=== PATIENT | female | born 1975 | race Caucasian/White ===

== ENCOUNTER 2024-06-27 14:31 | Outpatient (REF) | payer MEDICAID, SELFPAY ==
[2024-06-27 15:26] LABS: TSH 3.63 uIU/mL (0.36-3.74)
== END 2024-06-27 14:32 | disposition home or self-care (01) ==
LOC: NCHCN 14:31
PROVIDERS: Visit Provider Family Medicine
DX: E03.9 Hypothyroidism, unspecified (principal)
CPT/HCPCS: 84443

== ENCOUNTER 2024-11-15 12:02 | Inpatient (IN) | payer OTHER, SELFPAY ==
[2024-11-15 14:12] VITALS: BP 106/66; PULSE 107; RESP 16; TEMP 36.9; O2SAT 86
[2024-11-15 14:38] VITALS: BP 106/66; PULSE 107; RESP 16; TEMP 36.9; O2SAT 86
[2024-11-15] MEDS: nitroGLYcerin 0.4 MG TAB SL ×3 (16:18→23:20)
--- NOTE | 2024-11-15 16:53 | W.PM.HP.N ---
Date of service: 11/15/24 Time of Service: 17:02 Assessment and Plan Assessment and plan (1) End stage COPD: Status: Acute Assessment and plan: Reason why she is on hospice. Pulmonology has assessed her sometimes at GOLD 2, sometimes at GOLD 4. When I have seen her, she looks to be in respiratory distress due to poor gas exchange, even though she does n't present with pulmonary cachexia, or pursed lip breathing. Much of her presentation-obtunded, slow processing, nodding off--could be due to hypercarbia. Both times I spent time with her her oxygen was at 3L/min. She initially improved with her new BiPAP. Seems she has regressed again. Will see how she is here with frequent assessments. (2) Common variable immunodeficiency: Status: Acute Assessment and plan: Gets IGG at [facility] for same. Supposed to car changer to home [place] admin of IGG. Has not been taking her prophylactic antibiotics as Dr Will ordered. At risk for drug resistant infections. No evidence of acute infection now. (3) Hospice care patient: Status: Acute Assessment and plan: Is here on hospice symptom management. Will need daily visis until symptoms controlled. She would prefer to go home to , as long as she is comfortable. (4) Chronic pain: Status: Chronic Assessment and plan: Is on high dose opiods of hydromorphone SC 8 g/hr with 4 mg bolus q 15. Continue same. May use liquid morphine for air hunger in addition. (5) Steroid dependence: Status: Acute Assessment and plan: Will try to wean her down while she is here as she is always anxious, which makes her breathing worse. Will see if she tolerates dropping down to 5 mg. May not be able to. (6) Palliative care patient: Status: Acute Assessment and plan: Has seen Dr Velez for MAID. First request done. Planning on using MAID if her symptoms cannot be better controlled. (7) Hypoxia: Status: Acute Assessment and plan: Chronic problem. Severe. Thought that new Bipap would correct, but this has not helped as much as hoped. May lead to her . She is aware. (8) Respiratory disorder with ventilator dependence: Status: Acute Assessment and plan: Drops quickly off BiPAP. (9) Chest pain: Status: Acute Assessment and plan: May be linked to her hypoxia. Will check troponin x 1. If abnormal, consider nitro drip for comfort. Is using oral nitro frequently now. History of Present Illness History of Present Illness Chief Complaint: end-stage copd with severe hypoxia Narrative: Debra Smith is a 49 yo woman with end-stage copd. Her PCP Dr Kay Will referred Debra to hospice and Debra was admitted to home hospice on 10/24/24. Initially, Debra's Bipap was broken and she was often obtunded due to hypercarbia. We ordered a new machine and this initially helped considerably. However, over the last week, she has become nearly entirely bipap dependent. She does not use a nasal cannula at home--only Bipap or RA. She has had oxygenation readings from 35-70% on RA. Her friend and DPGEORGE Ivy who lives with her now says her lungs really took a turn on Monday, 2 days before this HOSPICE [facility]TOM [facility] admission. I saw her in her home prior to calling the ambulance for transport. When I was with her, sats while she was wearing her bipap ranged from 74-86%. On RA her sats ranged from 35% to 62%. She said she was unable to lift her head and hold it up for more than a few seconds. However, she was able to walk with help from Ganesh from her recliner to her BR, about 20 feet. She did not want to use her commode. She did this on RA only. She dropped down to 45% with a HR of 135 while walking. She was unable to have a long conversation with me due to her respiratory distress and severe fatigue/probable hypercapnea. We did discuss options--for her to stay home and accept lower readings, though Ganesh said this made him very uncomfortable. Debra said she'd been having more chest pains this week--in fact she had called 911 for transport at least once--before she opted against it. She repeatedly has said she wants to stay on hospice. She agreed to go to [facility] today, though in the past she has said she wanted to at home no matter what. She is Ganesh explained that he had turned up her oxygen from 2 to 3 L this am when he found her on the floor with a sat of 35%. I turned her back down to 2L. For most of her time on hospice, she has been getting daily hospice nurse visits. She has had 4 hospice provider visits, too. We are providing as much support and care in her home as possible, yet she is still not comfortable. There are no further home interventions that the hospice team and Debra and her friend Ganesh could think of. OF note, she saw museum informatics specialist Dr Justina Velez in her office on 11/13 (surprised she could get out of her home). This was her first visit for Medical Aid In Dying. Dr Velez found her competent. Please see her PC note. She is now being admitted for symptom management as we cannot get her air hunger and respiratory distress under control while maintaining mental clarity and reasonable oxygenation levels. Review of Systems Constitutional Constitutional: Reports body ache(s), Reports daytime sleepiness, Reports fatigue, Reports frequent falls, Reports headache(s), Reports lethargy, Reports stops breathing during sleep and Reports weakness Eyes Eyes: Reports dry eyes ENT Ears, Nose, Mouth, and Throat: Reports dysphagia, Reports dizziness, Reports dry mouth, Reports headache(s) and Reports hoarseness Cardiovascular Cardiovascular: Reports chest pain, Denies diaphoresis, Reports leg edema, Reports lightheadedness, Reports dyspnea and Reports dyspnea on exertion Respiratory Respiratory: Denies hemoptysis, Reports pain on inspiration, Reports dyspnea, Reports dyspnea on exertion and Reports wheezing Gastrointestinal Gastrointestinal: Reports constipation and Reports dysphagia Musculoskeletal Musculoskeletal: Reports myalgias, Reports muscle cramps, Reports muscle weakness and Reports stiffness Neurologic Neurologic: Reports abnormal speech, Reports confusion, Reports dizziness, Reports frequent falls, Reports headache(s), Reports memory loss and Reports weakness Psychiatric Psychiatric: Reports abnormal sleep pattern, Reports confusion, Reports memory loss, Reports mood swings and Reports panic attacks Endocrine Endocrine: Reports fatigue Allergic/Immunologic Allergic/Immunologic: Reports wheezing PFSH All Active Problems (Updated 11/15/24 @ 17:51 by Lisa Roberts MD) Chest pain (Acute) Respiratory disorder with ventilator dependence (Acute) BiPAP dependent Hypoxia (Acute) Advanced care planning/counseling discussion (Acute) Palliative care patient (Acute) on hospice, seeing PC for MAID only Steroid dependence (Acute) Supplemental oxygen dependent (Acute) Osteonecrosis (Acute) Chronic pain (Chronic) From osteonecrosis and chronic low back pain Hospice care patient (Acute) Common variable immunodeficiency (Acute) End stage COPD (Acute) Medical History COPD, severe Anxiety Hematuria Hidradenitis suppurativa Tracheobronchomalacia Cannabis dependence Near syncope Palpitations Tachycardia Bradycardia Anemia Steroid-induced diabetes Primary immune deficiency disorder Surgical History History of bronchoscopy Hx of shoulder surgery History of partial hysterectomy Hx of cholecystectomy Hx of umbilical hernia repair Hx of skin graft Hx of knee surgery History of hip surgery Hx of section Social History Smoking risk assessment performed?: No Meds Allergies and Home Medications Allergies Allergy/AdvReac Type Severity Reaction Status Date / Time amoxicillin Allergy Hives Verified 11/12/24 13:11 penicillin G benzathine Allergy Hives Verified 11/12/24 13:11 Home Medications ?Medication ?Instructions ?Recorded ?Confirmed ?Type albuterol sulfate 90 mcg/actuation 2 inh inhalation Q6H PRN 09/23/24 11/12/24 History breath activated powder inhaler furosemide 20 mg tablet 20 mg PO DAILY PRN 09/23/24 11/12/24 History hydroxyzine HCl 10 mg tablet 10 mg PO TID PRN 09/23/24 11/12/24 History ipratropium 0.5 mg-albuterol 3 mg 3 ml inhalation QID PRN 09/23/24 11/12/24 History (2.5 mg base)/3 mL nebulization soln levothyroxine 100 mcg capsule 200 mcg PO DAILY 09/23/24 11/12/24 History pantoprazole 40 mg tablet,delayed 40 mg PO DAILY 09/23/24 11/12/24 History release prednisone 20 mg tablet 20 mg PO DAILY 09/23/24 11/12/24 History promethazine 25 mg tablet 25 mg PO BID PRN 09/23/24 11/12/24 History triamcinolone acetonide 0.1 % 1 applic topical DAILY 09/23/24 11/12/24 History topical cream hyoscyamine sulfate 0.125 mg tablet 0.125 - 0.25 mg (1 - 2 x 0.125 mg) 11/04/24 11/12/24 Rx PO Q4H PRN PRN dyspepsia #24 tabs morphine concentrate 100 mg/5 mL 5 - 20 mg (0.25 - 1 mL) PO Q1-4H 11/04/24 11/12/24 Rx (20 mg/mL) oral solution PRN moderate to severe pain or shortness of breath #30 mL prochlorperazine maleate 10 mg 10 mg PO Q8H PRN 11/12/24 11/12/24 History tablet (Compazine) lorazepam 1 mg tablet 1 mg PO QID PRN PRN anxiety #56 11/13/24 Rx tabs nitroglycerin 0.3 mg sublingual 0.3 mg sublingual Q5M PRN chest 11/13/24 Rx tablet pain #10 tabs ondansetron 4 mg disintegrating 4 mg PO Q8H PRN nausea and 11/13/24 Rx tablet vomiting #20 tabs hydromorphone (PF) 10 mg/mL 5 - 10 mg (0.5 - 1 mL) subcut Q1H 11/14/24 Rx injection solution pain #100 mL Exam Narrative Exam Narrative: appears older than stated age, minimallly interactive, NAD, holds head down usually, poor eye contact Const General: not healthy appearing, uncomfortable and disheveled Nutritional Appearance: obese Orientation: awake, oriented to person, oriented to place and oriented to time Limitations: physical limitations HENMT Head: normocephalic and atraumatic Ears: hearing grossly normal bilaterally Eyes Conjunctivae: conjunctivae normal Sclera: sclerae normal Neck Neck: no lymphadenopathy Chest Chest: normal inspection of the chest Resp Effort & Inspection: not able to speak in complete sentences, audible wheezes, no retractions and tachypneic (with exertion) Auscultation: bronchovesicular breath sounds, diminished lung sounds, rhonchi and wheezes Cardio Jugular venous pressure: no JVD Rate: tachycardic GI Palpation: soft Auscultation: normal bowel sounds Skin General skin exam: dry skin Rashes: rashes noted Nails: clubbing Neuro General: patient awake, patient oriented x3 and gait abnormal Cognition: abnormal cognition Speech: abnormal speech Gait: other (unsteady) Extrem General: muscle atrophy and pedal edema Psych Appearance: disheveled Speech and Movement: delayed speech and slowed movement Mood: dysthymic mood Affect: sad, dysphoric affect and blunted Attitude: cooperative and avoids eye contact Thought Process: impoverished Insight: limited Judgment: limited Results Last Vital Signs Temp 98.4 F 11/15/24 14:38 Pulse 107 H 11/15/24 14:38 Resp 16 11/15/24 14:38 BP 106/66 11/15/24 14:38 Pulse Ox 86 L 11/15/24 14:38 Time Spent Time spent with Patient: >75 minutes (both at home and in the hospital. ) Time was spent: obtaining and/or reviewing separately otained hiistory, ordering medications,tests, procedures, referring, communicating with other health care manager, counseling the patient and care coordination
[2024-11-15] MEDS: Scopolamine 1 MG/3 DAYS PATCH TD (17:33)
[2024-11-15 22:51] LABS: Troponin I > 75000 ng/L (<or=51)
[2024-11-16] MEDS: nitroGLYcerin in D5W 50 MG/250 ML BTL IV (00:20)
[2024-11-16] MEDS: MORPHine Oral Concentrate 20 MG/ML PO ×6 (00:47→20:17)
[2024-11-16] MEDS: LORazepam 1 MG TAB PO ×2 (03:22→11:47)
[2024-11-16] MEDS: Pantoprazole 40 MG TABCR PO (08:06)
[2024-11-16] MEDS: predniSONE 20 MG TAB PO (08:06)
--- NOTE | 2024-11-16 11:16 | PGE_ITS ---
Date of Service Date of service: 11/16/24 Time of Service: 11:17 Assessment and Plan Assessment and plan (1) End stage COPD: Status: Acute Assessment and plan: On hospice due to refractory hypoxia and progressive decline. Continues to demonstrate signs of hypercarbia with fluctuating awareness. Slight improvement today with more responsiveness. Will continue BiPAP support and reassess frequently for tolerance and symptom control. (2) Respiratory disorder with ventilator dependence: Status: Acute Assessment and plan: BiPAP-dependent. Drops quickly when off. Monitor BiPAP tolerance closely and coordinate with respiratory therapy. (3) Chest pain: Status: Acute Assessment and plan: Troponin markedly elevated (>75,000). Nitro drip started overnight for symptom relief; currently at 60 mcg/min. Will continue to titrate drip based on chest pain. This likely represents Type II IA in setting of profound hypoxia and respiratory compromise. Comfort care only per patient?s expressed goals. Avoiding further invasive workup or transfer to higher level of care. (4) Muscle cramps: Status: Acute Assessment and plan: Likely secondary to electrolyte imbalance and progressive cachexia. Continue to treat sx with lorazepam and hydromorphone. Comfort focus. (5) Common variable immunodeficiency: Status: Acute Assessment and plan: On IGG infusions via [place]; has not transitioned to home SC dosing. Not currently on prophylactic antibiotics as prescribed. No signs of active infection today. Monitor closely. (6) Hospice care patient: Status: Acute Assessment and plan: Here for symptom management. Remains hospice-appropriate. Will continue daily provider visits until symptoms are better controlled. Reiterated desire to return home if stable enough. (7) Chronic pain: Status: Chronic Assessment and plan: SC hydromorphone changed to IV; currently 14 mg/h and 7 mg q15min bolus PRN. Increase basal by 2 mg hourly if 2 or more boluses/h and increase bolus to 1/2 of basal. Tolerating regimen. Continue low-dose morphine for breakthrough air hunger. (8) Steroid dependence: Status: Acute Assessment and plan: On chronic prednisone 20 mg daily. Considering cautious taper to 5 mg; however, patient?s anxiety and dyspnea may limit this. Reassess tolerance before adjusting. (9) Palliative care patient: Status: Acute Assessment and plan: MAID consultation completed with Dr. Velez; first request made. Patient remains competent and may elect MAID if symptoms cannot be sufficiently controlled. (10) Hypoxia: Status: Acute Assessment and plan: Chronic and severe. Slight improvement in BiPAP responsiveness, but overall oxygenation remains poor. Declines to escalate care beyond current comfort- focused approach. Subjective Subjective Patient reports: pain is less Interval history since last seen: Patient's pain is slightly improved today. She is more alert and responsive than on admission, maintaining brief periods of eye contact. She is tolerating BiPAP for longer durations with fewer desaturations noted during care interactions. No acute distress noted at bedside. Continues to report fatigue, chest discomfort, and intermittent muscle cramps. She remains steadfast in her desire for comfort-focused care only. * Awake, oriented to person/place/time * Poor eye contact but able to respond appropriately when prompted * No acute distress observed; speech remains slowed * On BiPAP continuously, saturations ranging 82?88% at rest * Audible wheezing, diminished breath sounds, mild tachypnea * Pedal edema persists; mild chest wall tenderness to palpation * Mood dysthymic, affect blunted but cooperative with care. Exam Narrative Exam Narrative: Cardiovascular: Tachycardic, regular rhythm. No murmur. Mild chest wall tenderness. Nitroglycerin drip infusing at 60 mcg/min with ongoing chest discomfort but improved since initiation. Neurologic: Cognition improved compared to prior exam. Follows commands, nods appropriately. Speech slowed but appropriate. Extremities: Trace pedal edema. No cyanosis. Clubbing noted. Objective Last Vital Signs Temp 36.9 C 11/15/24 14:38 Pulse 107 H 11/15/24 14:38 Resp 16 11/15/24 14:38 BP 106/66 11/15/24 14:38 Pulse Ox 86 L 11/15/24 14:38 Laboratory Results - last 24 hr 11/15/24 20:00 Troponin I > 68536 H* Time Spent with Patient Time Spent with Patient: >50 minutes Time was spent: preparing to see the patient(eg.review tests), ordering medications,tests, procedures, referring, communicating with other health healthcare facility administrator, indepentently interpreting results and care coordination
[2024-11-16] MEDS: Haloperidol 1 MG TAB PO ×2 (13:08→20:18)
--- NOTE | 2024-11-16 13:09 | PDOC.CMPRO ---
Date of service: 11/16/24 Time of Service: 13:10 Care Management Progress Note Progress Note Text Progress Note Text: Debra was admitted yesterday for hospice respite and symptom management. She lives with her friend Delta, who is also her DPOA. Debra has been on hospice since 10/24/24 due to her advanced COPD. She visited with Dr. Velez at at hospice on 11/11/24 to discuss Medical Aid in Dying. Debra was sitting up in the bed, coughing, when CM met with her. Her respiratory status and color were notably poor. She was very pleasant, however. She was alone in her room at the time, but is well supported by her friend, Ganesh. Debra is a , with 2 children, daughter nearby does not visit often, her son is in [place]. Debra requested a fan, some paper and a pen, some more tissues, and pain medication. RN was notified of the pain med, CM delivered the rest. Discharge Potential Discharge Needs: Other (continuation of hospice care) Anticipated Barriers to Discharge: None Identified Patient/Family Education Needs: Review discharge instructions, discuss Ask Me Three Transportation: Private vehicle Plan: Anticipate that Debra will be discharged home with a continuation of her hospice supports. She will transport home with her friend, Ganesh, in a private vehicle. CM will continue to follow. Social Determinants of Health Screening Will the Patient Participate in the Screening?: Unable to obtain
[2024-11-16] MEDS: LORazepam 20 MG/10 ML VIAL IVP ×3 (13:31→21:27)
[2024-11-16] MEDS: nitroGLYcerin in D5W 50 MG/250 ML BTL 21 MG IV (15:16)
--- NOTE | 2024-11-16 19:33 | NUR.NOTE ---
Nursing Note: Diego George ContactKatie, phone number [phone], , please call to contact Vaughn Smith--Pt's son in the [employer]--if the patient passes.
[2024-11-17] MEDS: nitroGLYcerin in D5W 50 MG/250 ML BTL 22.5 MG IV (00:49)
[2024-11-17] MEDS: MORPHine Oral Concentrate 20 MG/ML PO ×5 (02:28→19:31)
[2024-11-17] MEDS: Haloperidol 1 MG TAB PO ×3 (02:28→19:31)
[2024-11-17] MEDS: LORazepam 20 MG/10 ML VIAL IVP ×5 (02:28→19:31)
[2024-11-17] MEDS: predniSONE 20 MG TAB PO (09:16)
[2024-11-17] MEDS: Pantoprazole 40 MG TABCR PO (09:16)
[2024-11-17] MEDS: HYDROmorphone 2 MG/ML SYR 4 MG IM (09:34)
[2024-11-17] MEDS: nitroGLYcerin in D5W 50 MG/250 ML BTL 95 MG IV (13:09)
--- NOTE | 2024-11-17 15:34 | PGE_ITS ---
Date of Service Date of service: 11/17/24 Time of Service: 15:34 Assessment and Plan Assessment and plan (1) End stage COPD: Status: Acute Assessment and plan: On hospice due to refractory hypoxia and progressive decline. Slight improvement today with more responsiveness. Will continue nasal cannula and reassess frequently for tolerance and symptom control. Place BiPap for comfort prn. Discussed palliative sedation with Dr Roberts. Wants to start on Monday after her son arrives. (2) Respiratory disorder with ventilator dependence: Status: Acute Assessment and plan: Nasal cannula dependent today. BiPap if increased WOB, resp (3) Chest pain: Status: Acute Assessment and plan: Nitro drips continued for symptom relief; currently at 95 mcg/min. Will continue to titrate drip based on chest pain. This likely represents Type II PR in setting of profound hypoxia and respiratory compromise. Comfort care only per patient?s expressed goals. Avoiding further invasive workup or transfer to higher level of care. (4) Muscle cramps: Status: Acute Assessment and plan: Likely secondary to electrolyte imbalance and progressive cachexia. Continue to treat sx with lorazepam and hydromorphone. Comfort focus. (5) Hospice care patient: Status: Acute Assessment and plan: The patient remains hospice-appropriate and is being followed closely for symptom management. Daily provider visits will continue until better symptom control is achieved. * Pain: Patient reports pain as tolerable but continues to experience a considerable amount of discomfort. She is frequently requesting hydromorphone boluses, and the continuous infusion has been titrated accordingly. Current regimen includes: * Hydromorphone drip at 20 mg/hr * 10 mg boluses available every 15 minutes as needed Pain management remains a focus despite reported tolerability. (6) Chronic pain: Status: Chronic Assessment and plan: Continue hydromorphone drip IV; currently 20 mg/h and 10 mg q15min bolus PRN. Increase basal by 2 mg hourly if 2 or more boluses/h and increase bolus to 1/2 of basal. Tolerating regimen. Continue low-dose oral morphine for breakthrough a ir hunger. (7) Steroid dependence: Status: Acute Assessment and plan: On chronic prednisone 20 mg daily. Considering cautious taper to 5 mg; however, patient?s anxiety and dyspnea may limit this. Reassess tolerance before adjusting. (8) Palliative care patient: Status: Acute Assessment and plan: MAID consultation completed with Dr. Velez; first request made. Patient remains competent and may elect MAID if symptoms cannot be sufficiently controlled. Discussed palliative sedation with Dr Roberts - form signed. (9) Hypoxia: Status: Acute Assessment and plan: Chronic and severe. Overall oxygenation remains poor. Declines to escalate care beyond current comfort-focused approach. (10) Common variable immunodeficiency: Status: Acute Assessment and plan: On IGG infusions via [place]; has not transitioned to home SC dosing. Not currently on prophylactic antibiotics as prescribed. No signs of active infection today. Monitor closely. Subjective Subjective Patient reports: pain is less Interval history since last seen: Patient's pain is tolerable, per her report, today. She is alert and responsive, maintaining long periods of eye contact. She is tolerating nasal cannula without increased WOB. She is not in acute distress.. Continues to report fatigue, chest discomfort, and intermittent muscle cramps. She remains steadfast in her desire for comfort-focused care only. She requested to speak with physician regarding palliative sedation - Dr Roberts contacted and came in to see her. * Awake, oriented to person/place/time - boyfriend and friend at bedside. Brother arrived today; son to arrive tomorrow. * Good eye contact, conversant * No acute distress observed; speech remains slowed * On nasal cannula without increased WOB * Audible wheezing, diminished breath sound * Pedal edema persists; mild chest wall tenderness to palpation * Mood dysthymic, affect blunted but cooperative with care. Exam Narrative Exam Narrative: Cardiovascular: Tachycardic, regular rhythm. No murmur. Mild chest wall tenderness. Nitroglycerin drip infusing at 95 mcg/min with ongoing chest discomfort but continues to improve with increase in the drip, she reports as tolerable. She is no acute distress . Neurologic: Cognition, normal, comptete conversations, makes sense, words are not slurred. She did tell me about her day, her brother arrived, when son is arriving, her sister in law is coming. She states she is thrilled with the care she is receiving. Extremities: Trace pedal edema. No cyanosis. Clubbing noted. Objective Last Vital Signs Temp 36.9 C 11/15/24 14:38 Pulse 107 H 11/15/24 14:38 Resp 16 11/15/24 14:38 BP 106/66 11/15/24 14:38 Pulse Ox 86 L 11/15/24 14:38 Time Spent with Patient Time Spent with Patient: 25-34 minutes Time was spent: preparing to see the patient(eg.review tests), ordering medications,tests, procedures, referring, communicating with other health clinical manager home care, counseling the patient and care coordination
[2024-11-17] MEDS: Normal Saline Flush 10 ML SYR ×2 (15:46→17:45)
[2024-11-17] MEDS: Nicotine 4 MG GUM CH (16:07)
--- NOTE | 2024-11-17 18:24 | RESPIRATORY ---
11/17/24 Patient is on comfort care. Patient has home BIPAP in her room from [employer] which she states she has no issues with.
[2024-11-17] MEDS: Ondansetron O.D.T. 4 MG TABEF PO (21:41)
[2024-11-17] MEDS: nitroGLYcerin in D5W 50 MG/250 ML BTL 28.5 MG IV (21:56)
[2024-11-18] MEDS: Ondansetron 4 MG/2 ML VIAL IVP (00:44)
[2024-11-18] MEDS: LORazepam 20 MG/10 ML VIAL IVP ×4 (01:36→23:10)
[2024-11-18] MEDS: Haloperidol 1 MG TAB PO ×5 (01:36→23:10)
[2024-11-18] MEDS: MORPHine Oral Concentrate 20 MG/ML PO ×4 (01:37→23:10)
--- NOTE | 2024-11-18 03:19 | RESPIRATORY ---
RT called for a malfunctioning NIV. the device is a touchscreen model, and the screen was found to be broken and non-functional. The cause is unclear, but it appears it may have been dropped. The patient is very confused, attempting to grab objects, and is unable to provide details about it. Pt. agreed to use hospital BiPAP machine. Setting were adjusted based on the patient's comfort and tolerance. Pt. unable to provide the exact settings of the home device but described it provides assistance with both inhalation and exhalation. Setting adjusted at BiPAP 10/5 and FiO2 32% after pt. mentioned it felt similar pressure that she gets from home machine and FiO2 adjusted to match pt's baseline O2 flow of 3l/min.
[2024-11-18] MEDS: nitroGLYcerin in D5W 50 MG/250 ML BTL 28.5 MG IV ×2 (07:10→15:37)
--- NOTE | 2024-11-18 16:23 | CMPROGNOTE_ITS ---
Date of service: 11/18/24 Time of Service: 16:23 Care Management Progress Note Progress Note Text Progress Note Text: Debra was sitting crossed-legged on the bed, head slumped over on the bedside table when CM met with her today. She was easily roused. When asked how she was feeling, she stated sick. CM asked her about the plan for palliative sedation tomorrow after she sees her son. She stated that she is comfortable with this decision. She has beed sick for a very long time. Debra then placed her head back on the table. CM rubbed her back for a bit, and left her sleeping. Discharge Plan: Debra is [employer]ENT[employer] OFFICE [employer]. She will begin palliative sedation tomorrow, after she has a visit from her son. CM will continue to follow and support Debra and her family as able. Social Determinants of Health Screening Will the Patient Participate in the Screening?: Unable to obtain
[2024-11-18] MEDS: Scopolamine 1 MG/3 DAYS PATCH TD (17:30)
--- NOTE | 2024-11-18 19:35 | PGE_ITS ---
Date of Service Date of service: 11/18/24 Time of Service: 19:35 Assessment and Plan Assessment and plan (1) End stage COPD: Status: Acute Assessment and plan: Patient is on hospice care due to refractory hypoxia and ongoing clinical decline. Today, she maintained responsiveness and was able to sit up at the bedside and chat with friends and family. She is clear, alert and orientd. She will remain on nasal cannula with frequent reassessments for tolerance and symptom management. BiPAP will be used as needed for comfort. Palliative sedation was discussed with Dr. Roberts. The patient wishes to initiate sedation on Monday, following the arrival of her son Monday. (2) Respiratory disorder with ventilator dependence: Status: Acute Assessment and plan: Nasal cannula dependent today. BiPap if increased WOB, resp (3) Chest pain: Status: Acute Assessment and plan: Nitro drips continued for symptom relief; currently at 95 mcg/min. Unchanged in 24h Will continue to titrate drip based on chest pain. This likely represents Type II DC in setting of profound hypoxia and respiratory compromise. Comfort care only per patient?s expressed goals. Avoiding further invasive workup or transfer to higher level of care. (4) Muscle cramps: Status: Acute Assessment and plan: Likely secondary to electrolyte imbalance and progressive cachexia. Continue to treat sx with lorazepam and hydromorphone. Comfort focus. (5) Hospice care patient: Status: Acute Assessment and plan: The patient remains appropriate for hospice care and is being closely monitored for symptom management. Daily provider visits will continue until optimal symptom control is achieved. * Pain: The patient reports her pain as tolerable but continues to experience significant discomfort. She frequently requests hydromorphone boluses, and the continuous infusion has been adjusted accordingly. Current pain management regimen includes: * Hydromorphone infusion at 22 mg/hr * 11 mg boluses available every 15 minutes as needed (10 over the past 24H) Pain control remains a primary focus despite the patient?s report of tolerability. (6) Chronic pain: Status: Chronic Assessment and plan: Continue hydromorphone drip IV; currently 22 mg/h and 10 mg q15min bolus PRN. Increase basal by 2 mg hourly if 2 or more boluses/h and increase bolus to 1/2 of basal. Tolerating regimen. Continue low-dose oral morphine for breakthrough air hunger. (7) Steroid dependence: Status: Acute Assessment and plan: On chronic prednisone 20 mg daily. Considering cautious taper to 5 mg; however, patient?s anxiety and dyspnea may limit this. Reassess tolerance before adjusting. (8) Palliative care patient: Status: Acute Assessment and plan: Despite escalating medication doses, the patient?s pain and breathing remain inadequately controlled. A Medical Assistance in Dying consultation was completed with Dr. Velez, with the first request made. The patient remains competent and may choose [facility] if symptoms cannot be sufficiently managed. Palliative sedation was also discussed with Dr. Roberts, and the consent form has been signed. (9) Hypoxia: Status: Acute Assessment and plan: Chronic and severe. Overall oxygenation remains poor. Declines to escalate care beyond current comfort-focused approach. Subjective Subjective Patient reports: still having pain (however tolerable with current med regime), tolerating liquids well, tolerating a regular diet, voiding w/o difficulty and shortness of breath Interval history since last seen: The patient reports her pain is tolerable today. She is alert, oriented to person, place, and time, and engages in extended periods of eye contact. She remains responsive and conversant. Though fatigued, she is cooperative with care. She continues to experience fatigue, intermittent chest discomfort, and muscle cramps. Mood is dysthymic with a blunted affect, but she interacts appropriately and remains engaged. The patient is on nasal cannula without signs of increased work of breathing. Audible wheezing is present with diminished breath sounds. Mild chest wall tenderness noted on palpation; pedal edema persists. She reaffirms her preference for comfort-focused care only. She requested to speak with a physician regarding palliative sedation; Dr. Roberts was contacted and evaluated her at bedside. Social Update: Boyfriend and a close friend are present at bedside. Her brother arrived yesterday, and her son, she thought would arrive today, is expected tomorrow. Exam Narrative Exam Narrative: Cardiovascular: Tachycardic, regular rhythm. No murmur. Mild chest wall tenderness. Nitroglycerin drip infusing at 95 mcg/min with ongoing chest discomfort but continues to improve with increase in the drip, she reports as tolerable. She is no acute distress . Neurologic: Cognition, normal, comptete conversations, makes sense, words are not slurred. She did tell me about her day, her brother arrived, when son is arriving, her sister in law is coming. She states she is thrilled with the care she is receiving. Extremities: Trace pedal edema. No cyanosis. Clubbing noted. Objective Last Vital Signs Temp 36.9 C 11/15/24 14:38 Pulse 107 H 11/15/24 14:38 Resp 16 11/15/24 14:38 BP 106/66 11/15/24 14:38 Pulse Ox 86 L 11/15/24 14:38 Time Spent with Patient Time Spent with Patient: 25-34 minutes Time was spent: ordering medications,tests, procedures, counseling the patient and care coordination
[2024-11-18] MEDS: Normal Saline Flush 10 ML SYR (23:27)
[2024-11-19] MEDS: nitroGLYcerin in D5W 50 MG/250 ML BTL 28.5 MG IV ×3 (00:02→17:11)
[2024-11-19] MEDS: LORazepam 20 MG/10 ML VIAL IVP ×2 (08:23→21:27)
[2024-11-19] MEDS: MORPHine Oral Concentrate 20 MG/ML PO ×2 (08:23→21:27)
--- NOTE | 2024-11-19 10:40 | PDOC.CMPRO ---
Date of service: 11/19/24 Time of Service: 10:40 Care Management Progress Note Progress Note Text Progress Note Text: CM met with Debra, who was resting in her room, surrounded by friends and family. They stated that she has been talking a little this morning, but not much. They were both tearful and joyful, reminiscing about their close friend. They stated that Debra's son will be visiting this evening, and he and Debra's brother are making final arrangements. CM offered support with options, if needed. CM spoke to Debra's RN, who stated that Debra appears to be having an CO, and is being kept comfortable with nitro and hydromorphone. Her plan, per hospice, is to remain at [facility] for end of life care. CM will continue to follow. Discharge Plan: Debra is on comfort measures, and her plan is to remain at [facility] for end of life care. She will transition to palliative sedation later this evening, after her son is able to visit. CM will continue to follow and support Debra and her family during this difficult time. Social Determinants of Health Screening Will the Patient Participate in the Screening?: Unable to obtain
--- NOTE | 2024-11-19 15:05 | CHAPLAIN ---
I had a short visit with Debra and brought her a prayer shawl. The social work administrator from [facility] arrived to visit Debra, so I left. I will visit again later. According to Care Management, palliative sedation is planned for later this evening after Debra's son visits with her.
--- NOTE | 2024-11-19 18:50 | PGE_ITS ---
Date of Service Date of service: 11/19/24 Time of Service: 18:50 Assessment and Plan Assessment and plan (1) End stage COPD: Status: Acute Assessment and plan: The patient is receiving hospice care due to refractory hypoxia and progressive clinical decline. Today, she remained responsive but spent most of the day sleeping. She was observed hunched over in bed with her head resting on her lap, a position she reports as comfortable. She is alert, clear, and oriented. Oxygen is being delivered via nasal cannula, with frequent reassessments for symptom control and tolerance. BiPAP will be utilized as needed for comfort. Her SpO2 has not been evaluated today. The patient has expressed her wish to initiate palliative sedation on Monday, after her son arrives Monday night. She continues to decline with the current regimen, though she appears comfortable at this time. A return home is not feasible due to her requirement for a nitroglycerin drip and IV hydromorphone, which cannot be converted to subcutaneous administration. A midline is currently in place due to limited IV access. (2) Respiratory disorder with ventilator dependence: Status: Acute Assessment and plan: Nasal cannula dependent today. BiPap if increased WOB, resp (3) Chest pain: Status: Acute Assessment and plan: Nitro drips continued for symptom relief; currently at 95 mcg/min. Unchanged in 24h Will continue to titrate drip based on chest pain. This likely represents Type II NE in setting of profound hypoxia and respiratory compromise. Comfort care only per patient?s expressed goals. Avoiding further invasive workup or transfer to higher level of care. (4) Muscle cramps: Status: Acute Assessment and plan: Likely secondary to electrolyte imbalance and progressive cachexia. Continue to treat sx with lorazepam and hydromorphone. Comfort focus. (5) Hospice care patient: Status: Acute Assessment and plan: The patient remains appropriate for hospice care and is being closely monitored for symptom management. Daily provider visits will continue until optimal symptom control is achieved. * Pain: The patient reports her pain as tolerable but continues to experience significant discomfort. She frequently requests hydromorphone boluses, and the continuous infusion has been adjusted accordingly. Current pain management regimen includes: * Hydromorphone infusion at 24 mg/hr * Boluses available every 15 minutes as needed (Fewer required over past 24H) Pain control remains a primary focus despite the patient?s report of tolerability. (6) Chronic pain: Status: Chronic Assessment and plan: Continue hydromorphone drip IV; currently 24 mg/h and 12 mg q15min bolus PRN. Increase basal by 2 mg hourly if 2 or more boluses/h and increase bolus to 1/2 of basal. Tolerating regimen. Continue low-dose oral morphine for breakthrough air hunger. (7) Steroid dependence: Status: Acute Assessment and plan: On chronic prednisone 20 mg daily. Considering cautious taper to 5 mg; however, patient?s anxiety and dyspnea may limit this. Reassess tolerance before adjusting. (8) Palliative care patient: Status: Acute Assessment and plan: Despite escalating medication doses, the patient?s pain and breathing remain inadequately controlled. A Medical Assistance in Dying consultation was completed with Dr. Velez, with the first request made. The patient remains competent and may choose [facility] if symptoms cannot be sufficiently managed. Palliative sedation was also discussed with Dr. Roberts, and the consent form has been signed, however will be reevaluated on 11/20. (9) Hypoxia: Status: Acute Assessment and plan: Chronic and severe. Overall oxygenation remains poor. Declines to escalate care beyond current comfort-focused approach. Subjective Subjective Patient reports: no new complaints, still having pain, pain is less, voiding w/o difficulty, no bowel movement, shortness of breath and afebrile; denies tolerating liquids well, tolerating a regular diet, diarrhea or nausea Interval history since last seen: Continues to have pain and requiring nitroglycerin drip and hydromorphone drip with increased basal and boluses needed. Morphine and haloperidol also for shortness of breath and anxiety/agitation. Exam Narrative Exam Narrative: Cardiovascular: Tachycardic, regular rhythm. No murmur. Mild chest wall tenderness. Nitroglycerin drip infusing at 95 mcg/min with ongoing chest discomfort but admits to less pain with increase in the drip, she reports as tolerable. She is no acute distress . Neurologic: Cognition, normal, comptete conversations, makes sense, words are not slurred. She did tell me about her day, her brother arrived, when son is arriving, her sister in law is coming. Much more tired today, sleeping more. Unable to tolerate food and is no longer taking oral fluids as she is having difficulty swallowing and drools most of it out of her mouth. Extremities: Trace pedal edema. No cyanosis. Clubbing noted.Cool, pale, no mottling noted. Objective Last Vital Signs Temp 36.9 C 11/15/24 14:38 Pulse 107 H 11/15/24 14:38 Resp 16 11/15/24 14:38 BP 106/66 11/15/24 14:38 Pulse Ox 86 L 11/15/24 14:38 Time Spent with Patient Time Spent with Patient: 35-49 minutes Time was spent: referring, communicating with other health special needs caregiver, counseling the patient and care coordination
[2024-11-19] MEDS: Haloperidol 1 MG TAB PO (21:27)
[2024-11-20] MEDS: nitroGLYcerin in D5W 50 MG/250 ML BTL 28.5 MG IV (02:04)
--- NOTE | 2024-11-20 11:48 | DSE_ITS ---
Date of service: 11/20/24 Time of Service: 11:48 DS: Diagnosis Discharge Diagnosis (1) End stage COPD: Status: Acute (2) Respiratory disorder with ventilator dependence: Status: Acute (3) Chest pain: Status: Acute (4) Muscle cramps: Status: Acute (5) Hospice care patient: Status: Acute (6) Chronic pain: Status: Chronic (7) Steroid dependence: Status: Acute (8) Palliative care patient: Status: Acute (9) Hypoxia: Status: Acute Discharge Plan Disposition Patient Disposition: Home W/Hospice Services Condition: Poor Discharge Details Reason For Visit: Hospice Admit Date/Time: 11/15/24 12:02 Admit Provider: Lisa Roberts Attending Provider: Lisa Roberts Primary Care Provider: Kay Will Hospital Course Hospital Course: Debra Smith, a 49-year-old woman with end-stage COPD and common variable immunodeficiency, was admitted to hospice care on 10/24/24 due to progressive respiratory failure. She has become increasingly dependent on BIPAP therapy, wi th her oxygen saturation fluctuating between 35%-70% on room air and 74%-86% with BIPAP. Despite various interventions, she has been unable to sustain adequate oxygen levels without BIPAP assistance. Over the past week, Debra has experienced worsening chest pain, dyspnea, and fatigue, leading to her hospice admission for symptom management to address her ongoing air hunger and discomfort. Debra has expressed a strong preference to remain in hospice care, declining further aggressive treatments and opting for comfort measures for the remainder of her life. Clinical Course & Treatment: Upon admission, Debra's symptoms included severe dyspnea, fatigue, and significant chest pain. Despite interventions such as increased BIPAP settings and supplemental oxygen, her hypoxia remained severe. Debra was placed on: * Hydromorphone IV drip for pain management. * Nitroglycerin drip to manage chest pain. * Regular morphine for breakthrough pain and air hunger. * Haldol for sedation and to reduce anxiety. * Lorazepam as needed for anxiety and agitation. These interventions were successful in improving Debra?s comfort. By the time of discharge, she was stable, alert, and cooperative, with no signs of increased respiratory distress or work of breathing. Plan at Discharge: * End-Stage COPD: * BIPAP will continue to be used to manage respiratory distress. Oxygenation levels will be monitored frequently. * She will require daily assessments by the hospice team to ensure her symptoms are controlled. * Common Variable Immunodeficiency: * No evidence of acute infection at this time. * Unclear at discharge if IGG therapy will continue at [facility], or transitioning to home SC administration as per prior plan, or not at all. She has not been taking her prophylactic antibiotics, increasing her risk of drug-resistant infections. * Hospice Care: * Debra remains under hospice care for symptom management. Daily hospice visits will be required until her symptoms are better controlled. * MAID: Debra has expressed her desire for Medical Aid in Dying should symptoms remain unmanageable. * Her DPOA (Delta) is fully informed of her wishes, and advanced care planning has been discussed and documented. * Chronic Pain: * Continue current pain regimen with hydromorphone Cadd pump * Liquid morphine may be used for additional symptom management, especially for air hunger. * Steroid Dependence: * Has not been weened. Continue 20 mg prednisone daily. * Hypoxia: * Chronic hypoxia remains a concern. BIPAP therapy is critical, but her oxygen levels and comfort will be closely monitored. This condition is expected to worsen as her disease progresses. * Respiratory Disorder: * Ventilator dependence continues with BIPAP and oxygen support. * Debra?s chest pain may be related to her hypoxia. Nitroglycerin was used in the hospital with good relief. Discharged with Imdur 120 mg oral daily. Medications at Discharge: Hydromorphone CADD Pump Infusion Instructions: * Pump Configuration: * Cassette: 100 mL * Concentration: 10 mg/mL (hydromorphone) * Basal Rate: * Start at 26 mg/h (can range from 26-30 mg/h depending on patient needs). * Bolus: * Bolus dose should always be half of the basal rate. * For example: * If the basal rate is set at 26 mg/h, the bolus would be 13 mg. * If the basal rate is adjusted to 30 mg/h, the bolus should be 15 mg. * Adjustment of Basal Rate: * Increase the basal rate by 2 mg/h if more than two boluses are administered in one hour. * Example: If the patient requires more than two boluses of 13 mg each within an hour, the basal rate should be increased by 2 mg/h to compensate. * Bolus Adjustment: * The bolus rate should always remain half of the current basal rate. * As the basal rate increases, the bolus should also increase proportionally to maintain the 1:2 ratio. * Nitroglycerin: 0.3 mg sublingual every 5 minutes PRN for chest pain * Prednisone: 20 mg daily * Albuterol sulfate: 90 mcg/inh inhalation every 6 hours PRN * Ipratropium-albuterol nebulizer: 3 ml every 6 hours PRN * Morphine concentrate: 5-20 mg PO every 1-4 hours PRN for pain/air hunger * Lorazepam: 1 mg PO every 4 hours PRN for anxiety * Ondansetron: 4 mg PO every 8 hours PRN for nausea Follow-up: * Hospice Team: Daily visits until symptom control is achieved. * Internal Medicine Doctor (Dr. Justina Velez): Continued support for Medical Aid in Dying. * Primary Care Physician: No further follow-up as patient is under hospice care. Vital Signs at Discharge: * Temperature: 98.4?F * Pulse: 107 bpm * Respiratory Rate: 16 breaths per minute * Blood Pressure: 106/66 mmHg * Oxygen Saturation: 86% on room air (dependent on BIPAP for better oxygenation) Summary: Debra Smith, a 49-year-old woman with end-stage COPD and common variable immunodeficiency, is currently receiving hospice care for symptom management of her severe hypoxia, air hunger, pain, and respiratory distress. She is BIPAP- dependent with fluctuating oxygenation levels, requiring frequent assessments. Debra has expressed her preference for comfort care and has opted for Medical Aid in Dying if her symptoms cannot be better controlled. Her pain and symptom management regimen includes high-dose hydromorphone and morphine for air hunger, with nitroglycerin available for chest pain, and imdur 120 mg daily in lieu of nitroglygcerin drip. Her hospice care will be continued, with daily visits to ensure comfort and symptom control. Home Meds and New Rx's Prescriptions: New hydromorphone (PF) 10 mg/mL solution See Rx Instructions .ROUTE .COMPLEX Qty: 100 0RF Rx Instructions: CADD pump 100 ml cassette 26-30 mg/h sq basal rate and for the bolus - maintain 1/2 of basal. (When basal increases, increase bolus to equal 1/2 of basal) Increase basal by 2 mg/h if more than 2 boluses are used in one hour. isosorbide mononitrate 120 mg tablet extended release 24 hr 120 mg PO DAILY Qty: 30 0RF Continued prochlorperazine maleate [Compazine] 10 mg tablet 10 mg PO Q8H PRN prednisone 20 mg tablet 20 mg PO DAILY albuterol sulfate 90 mcg/actuation aerosol powdr breath activated 2 inh inhalation Q6H PRN promethazine 25 mg tablet 25 mg PO BID PRN hydroxyzine HCl 10 mg tablet 10 mg PO TID PRN furosemide 20 mg tablet 20 mg PO DAILY PRN ipratropium-albuterol 0.5 mg-3 mg(2.5 mg base)/3 mL solution for nebulization 3 ml inhalation QID PRN triamcinolone acetonide 0.1 % cream 1 applic topical DAILY hyoscyamine sulfate 0.125 mg tablet 0.125 - 0.25 mg PO Q4H PRN PRN (Reason: dyspepsia) Qty: 24 0RF Rx Instructions: hospice patient lorazepam 1 mg tablet 1 mg PO QID PRN PRN (Reason: anxiety) Qty: 56 5RF Rx Instructions: hospice nitroglycerin 0.3 mg tablet, sublingual 0.3 mg sublingual Q5M PRN (Reason: chest pain) Qty: 10 5RF Rx Instructions: do not exceed 3 doses per episode hospice patient ondansetron 4 mg tablet,disintegrating 4 mg PO Q8H PRN (Reason: nausea and vomiting) Qty: 20 5RF Rx Instructions: hospice patient hydromorphone (PF) 10 mg/mL solution 5 - 10 mg subcut Q1H MDD 50 ml Qty: 100 0RF Rx Instructions: Hospice CADD PUMP Basal rate: 5-10 mg/hr Bolus: 3-6 mg q 15m PRN No Action pantoprazole 40 mg tablet,delayed release (DR/EC) 40 mg PO DAILY levothyroxine 100 mcg capsule 200 mcg PO DAILY Discharge Instructions Stand Alone Forms: Nursing Discharge Form Activity:: Activity as Tolerated Equipment/Supplies:: No Equipment Needed Diet:: As Tolerated Discharge Orders Discharge Orders: Discharge Order (Routine); Ordered 11/20/24 Ordered By: Nola Ocampo Discharge Data Discharge Date/Time-TO BE ENTERED AT DEPARTURE: 11/20/24 13:52 DS: Summary Time Spent with Patient providing and/or coordinating discharge services: Greater than 30 minutes Status at Discharge Functional status at discharge: uses cane/walker Overall status at discharge: patient is not back to baseline Mental Status: mental status grossly normal Speech and Movement: speech and movement normal Mood: congruent mood Affect: normal affect Exam Narrative Exam Narrative: Cardiovascular: Tachycardic, regular rhythm. No murmur. Mild chest wall tenderness. Nitroglycerin drip infusing at 95 mcg/min with ongoing chest discomfort but admits to less pain with increase in the drip, she reports as tolerable. She is no acute distress . Neurologic: Cognition, normal, comptete conversations, makes sense, words are not slurred. She did tell me about her day, her brother arrived, when son is arriving, her sister in law is coming. Much more tired today, sleeping more. Unable to tolerate food and is no longer taking oral fluids as she is having difficulty swallowing and drools most of it out of her mouth. Extremities: Trace pedal edema. No cyanosis. Clubbing noted.Cool, pale, no mottling noted. Psych Mental Status: mental status grossly normal Speech and Movement: speech and movement normal Mood: congruent mood Affect: normal affect DS: Data Vitals/I&O Vitals and I&O: Vital Signs Temperature 36.9 C 11/15/24 14:38 Pulse 107 H 11/15/24 14:38 Respiratory Rate 16 11/15/24 14:38 Respiratory Effort Non-Labored 11/15/24 14:12 Respiratory Depth Shallow 11/15/24 14:12 Respiratory Pattern Irregular 11/15/24 14:12 Blood Pressure 106/66 11/15/24 14:38 Pulse Oximetry 86 L 11/15/24 14:38 Oxygen Delivery Method Nasal Cannula 11/19/24 09:19 Oxygen Flow Rate 3 11/19/24 09:19 Fraction of Inspired Oxygen (FIO2) 32 11/18/24 03:20 Pain Level 8 11/17/24 09:26 Intake & Output 11/19/24 11/19/24 11/20/24 11:59 23:59 11:59 Intake Total 521.115 / 938.840 417.725 / 938.840 610.625 / 610.625 Balance 521.115 / 938.840 417.725 / 938.840 610.625 / 610.625 Intake: IV 521.115 / 938.840 417.725 / 938.840 610.625 / 610.625 Other: Urine Appearance Clear Clear Comment per patient went to the bathroom voided in toilet PFSH All Active Problems (Updated 11/20/24 @ 11:54 by Nola Ocampo NP) Muscle cramps (Acute) Chest pain (Acute) Respiratory disorder with ventilator dependence (Acute) BiPAP dependent Hypoxia (Acute) Advanced care planning/counseling discussion (Acute) Palliative care patient (Acute) on hospice, seeing PC for MAID only Steroid dependence (Acute) Supplemental oxygen dependent (Acute) Osteonecrosis (Acute) Chronic pain (Chronic) From osteonecrosis and chronic low back pain Hospice care patient (Acute) Common variable immunodeficiency (Acute) End stage COPD (Acute) Medical History COPD, severe Anxiety Hematuria Hidradenitis suppurativa Tracheobronchomalacia Cannabis dependence Near syncope Palpitations Tachycardia Bradycardia Anemia Steroid-induced diabetes Primary immune deficiency disorder Surgical History History of bronchoscopy Hx of shoulder surgery History of partial hysterectomy Hx of cholecystectomy Hx of umbilical hernia repair Hx of skin graft Hx of knee surgery History of hip surgery Hx of section Social History Smoking/Tobacco Use Status: Unknown Smoking risk assessment performed?: Yes Time Spent with Patient Time Spent with Patient: 45-69 minutes Time was spent: ordering medications,tests, procedures, referring, communicating with other health care taker, indepentently interpreting results, counseling the patient and care coordination
[2024-11-20] MEDS: Haloperidol 1 MG TAB PO (13:04)
--- NOTE | 2024-11-20 15:14 | PDOC.CMDIS ---
Date of service: 11/20/24 Time of Service: 13:00 LACE Index Scoring Tool Questions: Length of Stay (in days): 4 - 6 Was the patient admitted via the E.D.?: No Comorbidities: Chronic Pulmonary Disease E.D. Visits: 0 Answers: Total Score: 6 Risk of Readmission: Low Risk Care Management Discharge Plan Reason for Hospitalization: Hospice respite and symptom management Discharge Plan: Debra was discharged home earlier today with continuation of her hospice care. Debra was transported home in a private vehicle with her friend. Her caregivers were present for discharge teaching. Patient/Family Education Needs: Review of discharge instructions, activity, limitations, and discuss Ask me 3.
== END 2024-11-20 13:52 | disposition hospice, home (50) | DRG 189 ==
PROVIDERS: Admitting Provider Family Medicine; PCP Family Medicine; Responsible Provider Nurse Practitioner Family; Visit Provider Family Medicine
DX: J96.21 Acute and chronic respiratory failure with hypoxia (principal); I21.A1 Myocardial infarction type 2; D83.9 Common variable immunodeficiency, unspecified; M87.9 Osteonecrosis, unspecified; J96.22 Acute and chronic respiratory failure with hypercapnia; J44.9 Chronic obstructive pulmonary disease, unspecified; Z51.5 Encounter for palliative care; G89.29 Other chronic pain; R07.89 Other chest pain; R25.2 Cramp and spasm; Z79.52 Long term (current) use of systemic steroids; Z99.81 Dependence on supplemental oxygen; M54.50 Low back pain, unspecified; F41.9 Anxiety disorder, unspecified; J98.09 Other diseases of bronchus, not elsewhere classified; L73.2 Hidradenitis suppurativa; R31.9 Hematuria, unspecified; F12.20 Cannabis dependence, uncomplicated; D64.9 Anemia, unspecified; E09.9 Drug or chemical induced diabetes mellitus without complications; T38.0X5A Adverse effect of glucocorticoids and synthetic analogues, initial encounter
CPT/HCPCS: 36410; 00123; 84484; J1171; J2003; J2060; J2305; J2405; J7512

== ENCOUNTER 2025-02-08 11:53 | Inpatient (IN) | payer OTHER, SELFPAY ==
--- NOTE | 2025-02-08 15:04 | W.PM.HP.N ---
Date of service: 02/08/25 Time of Service: 15:04 Assessment and Plan Assessment and plan (1) End stage COPD: Status: Acute Assessment and plan: Continue CPAP to manage respiratory distress Monitor respiratory comfort Comfort measures prioritized Lorazepam PRN for anxiety Ondansetron PRN for nausea Furosemide PRN for volume overload Albuterol & ipratropium-albuterol inhalers PRN for bronchospasm Hydromorphone CADD pump 8 mg/h w 4 mg q15m bolus available; if more than 2 boluses in 1 h, increase infusion rate by 1 mg - increase bolus rate to 1/2 infusion rate. (2) Supplemental oxygen dependent: Status: Acute Assessment and plan: CPAP essential for survival Comfort measures prioritized. (3) Hypoxia: Status: Acute Assessment and plan: Chronic and worsening CPAP and oxygen support critical Anticipated to deteriorate as disease progresses (4) Steroid dependence: Assessment and plan: Continue prednisone 20 mg daily No attempt at tapering due to disease severity (5) Hospice care patient: Status: Acute Assessment and plan: Remains under hospice for symptom control Wishes for MAID clearly expressed and documented DPOA (Delta) involved and informed Daily hospice team visits until symptom stabilization (6) Chronic pain: Assessment and plan: Hydromorphone CADD pump 8 mg/h w 4 mg q15m bolus available; if more than 2 boluses in 1 h, increase infusion rate by 1 mg - increase bolus rate to 1/2 infusion rate. History of Present Illness History of Present Illness Chief Complaint: Shortness of breath; bone and back pain. Narrative: Latasha (Debra) is a 49-year-old female with end-stage COPD, chronic hypoxia, and common variable immunodeficiency, currently enrolled in hospice care since 10/24/24 due to progressive respiratory failure. Despite receiving maximal supportive therapy at home?including BiPAP, supplemental oxygen, and high-dose opioids via CADD pump?Debra has experienced escalating symptoms of dyspnea, bone and back pain, and profound fatigue. Her oxygen saturations remain critically low, and she is now unable to tolerate even minimal activity or periods off BiPAP. Due to worsening air hunger and inadequate symptom control in the home setting, Debra presents to the hospital under hospice care for inpatient symptom management, with a primary goal of optimizing comfort and relieving distress that could not be adequately addressed at home. Review of Systems Narrative: Constitutional: Fatigue, poor oral intake, increasing sleep, functional decline Respiratory: Severe dyspnea, ventilator (CPAP) dependence, chronic hypoxia Cardiovascular: Chest pain responsive to nitroglycerin GI: Difficulty swallowing, unable to tolerate regular diet, yogurt, apple sauce and the like Neuro: Cognition intact, conversational although 3 word dyspnea, alert Psych: Anxiety, mood congruent with situation, no agitation on admission Skin: Finger beds cyanotic, no mottling; cool, pale extremities with mild pedal edema Musculoskeletal: Muscle cramps reported; chronic pain from osteonecrosis : Voiding independently, refuses mujica catheter PFSH All Active Problems (Updated 02/08/25 @ 15:10 by Nola Ocampo NP) Hospice care patient (Acute) Hypoxia (Acute) Advanced care planning/counseling discussion (Acute) Supplemental oxygen dependent (Acute) Osteonecrosis (Acute) End stage COPD (Acute) Medical History COPD, severe Anxiety Hematuria Hidradenitis suppurativa Tracheobronchomalacia Cannabis dependence Near syncope Palpitations Tachycardia Bradycardia Anemia Steroid-induced diabetes Primary immune deficiency disorder Surgical History History of bronchoscopy Hx of shoulder surgery History of partial hysterectomy Hx of cholecystectomy Hx of umbilical hernia repair Hx of skin graft Hx of knee surgery History of hip surgery Hx of section Social History Smoking/Tobacco Use Status: Unknown Smoking risk assessment performed?: Yes Meds Allergies and Home Medications Allergies Allergy/AdvReac Type Severity Reaction Status Date / Time amoxicillin Allergy Hives Verified 11/12/24 13:11 penicillin G benzathine Allergy Hives Verified 11/12/24 13:11 Home Medications ?Medication ?Instructions ?Recorded ?Confirmed ?Type albuterol sulfate 90 mcg/actuation 2 inh inhalation Q6H PRN 09/23/24 12/03/24 History breath activated powder inhaler hydroxyzine HCl 10 mg tablet 10 mg PO TID PRN 09/23/24 12/03/24 History ipratropium 0.5 mg-albuterol 3 mg 3 ml inhalation QID PRN 09/23/24 12/03/24 History (2.5 mg base)/3 mL nebulization soln levothyroxine 100 mcg capsule 200 mcg PO DAILY 09/23/24 12/03/24 History pantoprazole 40 mg tablet,delayed 40 mg PO DAILY 09/23/24 12/03/24 History release prednisone 20 mg tablet 20 mg PO DAILY 09/23/24 12/03/24 History promethazine 25 mg tablet 25 mg PO BID PRN 09/23/24 12/03/24 History triamcinolone acetonide 0.1 % 1 applic topical DAILY 09/23/24 12/03/24 History topical cream hyoscyamine sulfate 0.125 mg tablet 0.125 - 0.25 mg (1 - 2 x 0.125 mg) 11/04/24 12/03/24 Rx PO Q4H PRN PRN dyspepsia #24 tabs prochlorperazine maleate 10 mg 10 mg PO Q8H PRN 11/12/24 12/03/24 History tablet (Compazine) ondansetron 4 mg disintegrating 4 mg PO Q8H PRN nausea and 11/13/24 12/03/24 Rx tablet vomiting #20 tabs isosorbide mononitrate 120 mg 120 mg PO DAILY #30 tabs 11/20/24 12/03/24 Rx tablet,extended release 24 hr nitroglycerin 0.3 mg sublingual 0.3 mg sublingual Q5M PRN chest 01/23/25 Rx tablet pain #10 tabs furosemide 20 mg tablet (Lasix) 20 mg PO DAILY PRN edema #20 tabs 01/24/25 Rx hydromorphone (PF) 10 mg/mL 7.5 mg (0.75 mL) subcut Q1H pain 02/07/25 Rx injection solution #100 mL lorazepam 2 mg/mL oral concentrate See Rx Instructions PO Q4H PRN 02/07/25 Rx (Lorazepam Intensol) anxiety #30 mL morphine concentrate 100 mg/5 mL 5 - 20 mg (0.25 - 1 mL) PO Q1H PRN 02/07/25 Rx (20 mg/mL) oral solution PRN pain #30 mL Exam Narrative Exam Narrative: Vitals: T: 36.3?F, HR: 74 bpm, RR: 28 shallow, BP: 113/69, SpO2: 88% on 3 LPM General: Stable, alert, cooperative, difficult keeping her eyes open complaining of being fatigues I can't go on like this much longer. CV: Tachycardic, regular rhythm, no murmur, mild chest wall tenderness Resp: Shallow, irregular pattern; CPAP-dependent Neuro: Normal cognition, normal speech, 3 word dyspnea, oriented Extremities: Trace pedal edema, clubbing, no cyanosis or mottling Psych: Normal affect and mood; no cognitive impairment noted Time Spent Time spent with Patient: 55-74 minutes Time was spent: preparing to see the patient(eg.review tests), obtaining and/or reviewing separately otained hiistory, ordering medications,tests, procedures, referring, communicating with other health patient care representative, indepentently interpreting results, counseling the patient and care coordination
[2025-02-08 15:57] VITALS: BP 113/69; PULSE 75; TEMP 36.3; O2SAT 98
[2025-02-08 16:00] VITALS: O2SAT 95
[2025-02-08] MEDS: Ondansetron O.D.T. 4 MG TABEF PO (17:03)
[2025-02-08] MEDS: LORazepam 2 MG/1 ML Oral Concentrate PO ×2 (17:04→23:30)
[2025-02-08] MEDS: MORPHine Oral Concentrate 20 MG/ML PO ×2 (17:06→19:31)
[2025-02-08 19:18] VITALS: BP 102/67; PULSE 70; RESP 17; TEMP 36.6; O2SAT 97
[2025-02-08 19:58] VITALS: O2SAT 94
[2025-02-09] MEDS: Levothyroxine 100 MCG TAB 200 MCG PO (05:36)
[2025-02-09] MEDS: Acetaminophen 500 MG TAB PO ×2 (08:04→17:20)
[2025-02-09] MEDS: Isosorbide Mononitrate 30 MG TABCR 120 MG PO (08:04)
[2025-02-09] MEDS: MORPHine Oral Concentrate 20 MG/ML PO ×2 (08:04→12:34)
[2025-02-09] MEDS: predniSONE 20 MG TAB PO (08:04)
[2025-02-09] MEDS: Pantoprazole 40 MG TABCR PO (08:05)
--- NOTE | 2025-02-09 08:27 | PDOC.CMPRO ---
Date of service: 02/09/25 Time of Service: 08:27 Care Management Progress Note Progress Note Text Progress Note Text: Debra is a 50 year old woman on hospice who was admitted on 02/08/25 for symptom management. She has end stage COPD and is having difficulty breathing as well as uncontrolled pain. Debra was lying in bed with a towel over her face when CM met with her. There was a man sitting with her but CM was not introduced. Debra did not really engage with CM. She answered questions with one word answers or a shrug. She did state that she is a little more comfortable than she was when she was first admitted. Discharge Potential Discharge Needs: Other (hospice) Anticipated Barriers to Discharge: Medical Status Patient/Family Education Needs: Review discharge instructions, discuss Ask Me Three Transportation: EMS Plan: Debra will return home with a resumption of her hospice services when medically ready for discharge. She will follow up with her hospice team and plan of care and transport via EMS. CM will follow. Social Determinants of Health Screening Social Determinants of health last assessed in clinic: 02/09/25 Will the Patient Participate in the Screening?: Yes Do you worry about having a steady place to live?: no Problems where you live: no known problems In the past 12 months, have you had to go without electric, gas, oil or water in your home?: no 1. Within the past 12 months, we worried whether our food would run out before we got money to buy more.: Never true 2. Within the past 12 months, the food we bought just didn't last and we didn't have money to get more.: Never true Has lack of transportation kept you from medical appointments or from doing things needed for daily living?: yes Has anyone in your life made you feel unsafe or unsupported?: no How hard is it for you to pay for the very basics like food, housing, medical care, and heating? Would you say it is:: Somewhat hard Do you want help finding or keeping work or a job?: I do not need or want help If for any reason you need help with day-to-day activities such as bathing, preparing meals, shopping, managing finances, etc., do you get the help you need?: I could use a little more help How often do you feel lonely or isolated from those around you?: Often Do you speak a language other than Estonian at home?: No Does the patient want assistance with any of the above?: No Health Related Social Needs Health related social needs: transportation insecurity (Z59.82), problems related to housing/economic circumstances (Z59.89), problems with daily activities (Z73.9) and feeling lonely/isolated (Z60.8) Health related social needs details: Pt states she would like more assistance.
[2025-02-09] MEDS: LORazepam 2 MG/1 ML Oral Concentrate PO ×2 (09:35→17:21)
--- NOTE | 2025-02-09 10:52 | PGE_ITS ---
Date of Service Date of service: 02/09/25 Time of Service: 10:52 Assessment and Plan Assessment and plan (1) End stage COPD: Status: Acute Assessment and plan: Continue CPAP to manage respiratory distress Monitor respiratory comfort Comfort measures prioritized Lorazepam PRN for anxiety Ondansetron PRN for nausea Furosemide PRN for volume overload Albuterol & ipratropium-albuterol inhalers PRN for bronchospasm Hydromorphone CADD pump Patient received 7 boluses in 14 hours - current rate 10 mg/h w 5 mg bolus q 15 prn, increase by 1 mg/h if 2 boluses in 1 h, increase bolus to equal 1/2 of infusion rate. (2) Supplemental oxygen dependent: Status: Acute Assessment and plan: CPAP is essential for survival. Patient demonstrates increased need for CPAP overnight. Not tolerating nasal cannula consistently, although occasionally requests it for comfort. Comfort measures prioritized. (3) Hypoxia: Status: Acute Assessment and plan: Chronic and worsening CPAP and oxygen support critical Deteriorating since admission as disease progresses (4) Hospice care patient: Status: Acute Assessment and plan: Patient remains under hospice care for symptom control. Wishes for MAID (Medical Aid in Dying) clearly expressed and documented. Patient stated today she is ?almost ready to take the medication.? Encouraged patient to notify staff when she has made her decision, prior to any potential encephalopathy limiting decision-making capacity, so arrangements can be made for her to return home. SUZE ([place]) involved and informed; present at bedside today. Daily hospice team visits to continue until symptom stabilization. Subjective Subjective Patient reports: still having pain, tolerating liquids well, voiding w/o difficulty, nausea, shortness of breath and afebrile; denies tolerating a regular diet Interval history since last seen: Significant other at bedside; Patient states I don't know how much longer I can do this, I'm worn out and exhausted and almost ready to take the medications, can I do that here? Exam Narrative Exam Narrative: * Vitals: T: RR 22, SPO2 86 4 LPM HR 120s * General: Stable, alert, cooperative, ill appearing * CV: Tachycardic, regular rhythm, no murmur, mild chest wall tenderness * Resp: Shallow, irregular pattern; 4 LPM NC, CPAP at night and PRN, increased WOB, dypnea when trying to speak. * Neuro: Normal cognition, normal speech, 3 word dyspnea, oriented * Extremities: Trace pedal edema, clubbing, no cyanosis or mottling * Psych: Flat affect and mood; no cognitive impairment noted Objective Last Vital Signs Temp 36.6 C 02/08/25 19:18 Pulse 70 02/08/25 19:18 Resp 17 02/08/25 19:18 BP 102/67 02/08/25 19:18 Pulse Ox 94 02/08/25 19:58 Time Spent with Patient Time Spent with Patient: 25-34 minutes Time was spent: preparing to see the patient(eg.review tests), ordering medications,tests, procedures, counseling the patient and care coordination
--- NOTE | 2025-02-09 12:51 | PHACLINREV_ITS ---
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) Opiate Usage Evaluate Pain Scale/Pains Meds: Reviewed (hydromorphone 10mg/mL CADD currently at 1ml/hr - last increased today at 1227) Scheduled Bowel Reg ordered if on Opiates?: No (PRN Miralax) Relevant Labs Electrolytes, C-Reactive P, ESR: N/A Cardiac Review BP, HR, EF%: N/A QTc Review QTc: Reviewed (No EKG on file) IV to PO Switch IV Medications: Reviewed Home Meds Home Med List reviewed: Reviewed Current Meds Current Medication Order Review: Intervened Comments: Added 2nd PRN to DuoNeb, furosemide, hydroxyzine, ondansetron, prochlorperazine and promethazine orders per pharmacy protocol Changed timing of pantoprazole from 0830 to 0730 per pharmacy protocol
[2025-02-09 20:05] VITALS: O2SAT 95
[2025-02-10] MEDS: Albuterol 2.5 MG/3 ML INH SOLN VIAL UPD (01:22)
[2025-02-10 01:27] VITALS: PULSE 67; RESP 20; O2SAT 95
[2025-02-10] MEDS: LORazepam 2 MG/1 ML Oral Concentrate PO ×2 (01:36→08:40)
[2025-02-10] MEDS: MORPHine Oral Concentrate 20 MG/ML PO (05:32)
[2025-02-10] MEDS: Levothyroxine 100 MCG TAB 200 MCG PO (05:32)
--- NOTE | 2025-02-10 06:28 | W.PC.ACHO ---
Registration Status: ADM IN Primary Language: Preferred Language: Medical / Surgical History (Last Reviewed 11/15/24 @ 17:33 by Lisa Roberts MD) Muscle cramps Respiratory disorder with ventilator dependence Steroid dependence Common variable immunodeficiency Chronic pain COPD, severe Anxiety Hematuria Hidradenitis suppurativa Tracheobronchomalacia Cannabis dependence Near syncope Palpitations Tachycardia Bradycardia Anemia Steroid-induced diabetes Primary immune deficiency disorder (Last Reviewed 11/15/24 @ 17:33 by Lisa Roberts MD) History of bronchoscopy Hx of shoulder surgery History of partial hysterectomy Hx of cholecystectomy Hx of umbilical hernia repair Hx of skin graft Hx of knee surgery History of hip surgery Hx of section Most Recent Vital Signs Temperature 36.6 C 02/08/25 19:18 Temperature Source Temporal Artery Scan 02/08/25 19:18 Pulse 67 02/10/25 01:27 Pulse Rhythm Regular 02/08/25 15:52 Respiratory Rate 20 02/10/25 01:27 Respiratory Effort Short of Breath 02/08/25 15:52 Respiratory Depth Normal 02/08/25 15:52 Respiratory Pattern Normal 02/08/25 15:52 Blood Pressure 102/67 02/08/25 19:18 Blood Pressure Mean 78 02/08/25 19:18 Pulse Oximetry 95 02/10/25 01:27 Oxygen Delivery Method Nasal Cannula 02/09/25 20:05 Oxygen Flow Rate 3 02/10/25 01:15 Pain Level 6 02/09/25 17:20 Allergies amoxicillin Allergy (Verified 11/12/24 13:11) Hives penicillin G benzathine Allergy (Verified 11/12/24 13:11) Hives Active Medications Generic Name Dose Route Start Last Admin Trade Name Freq PRN Reason Stop Dose Admin Acetaminophen 0 mg 02/08/25 15:16 02/09/25 17:20 Acetaminophen 500 Mg Tab PO 1,000 mg Q6H PRN PRN Administration Albuterol Sulfate 2.5 mg 02/08/25 11:58 02/10/25 01:22 Albuterol 2.5 Mg/3 Ml Inh Soln Vial UPD 2.5 mg Q1H PRN PRN Administration Hydromorphone HCl 1,000 mg/ 100 mls @ 0 mls/hr 02/08/25 16:15 02/10/25 05:03 Device SC_INF 1 mls/hr INFUSION SLICK Infusion As Directed Isosorbide Mononitrate 120 mg 02/09/25 08:30 02/09/25 08:04 Isosorbide Mononitrate 30 Mg Tabcr PO 120 mg DAILY SLICK Administration Levothyroxine Sodium 200 mcg 02/09/25 05:35 02/10/25 05:32 Levothyroxine 100 Mcg Tab PO 200 mcg DAILY AM SLICK Administration Lorazepam 0.5 - 1 mg 02/08/25 11:56 02/10/25 01:36 Lorazepam 2 Mg/1 Ml Oral Concentrate PO 1 mg Q4H PRN PRN Administration Anxiety Morphine Sulfate 5 - 20 mg 02/08/25 11:56 02/10/25 05:32 Morphine Oral Concentrate 20 Mg/Ml PO 10 mg Q1H PRN PRN Administration Pain Prednisone 20 mg 02/09/25 08:30 02/09/25 08:04 Prednisone 20 Mg Tab PO 20 mg DAILY SLICK Administration Sennosides 0 tab 02/08/25 20:00 02/09/25 20:06 Senna Tab PO Not Given HS SLICK Triamcinolone Acetonide 0 gm 02/09/25 08:30 02/09/25 08:05 Triamcinolone 0.1% Cr 15 Gm Tube TP Not Given DAILY SLICK Intake and Output - 24 Hour Total 02/08/25 thru 02/10/25 05:54 Intake Total 738.1 Output Total 200 Balance 538.1 Weight 70.76 kg Intake: IV 88.1 Oral 650 Output: Urine 200 Other: Urine Color Pale Yellow Urine Appearance Clear Urine Odor None Comment independent to commode Stool Size Large Stool Characteristics Soft Falls Risk Assessment History of Falls No History 02/08/25 15:52 Contributing Factors No Factors 02/08/25 15:52 Ambulatory Aids Uses ambulatory device 02/08/25 15:52 Tubes/Lines None 02/08/25 15:52 Gait Evaluation W/no contributing factors 02/08/25 15:52 Cognition No cognitive impairment 02/08/25 15:52 Fall Total Score 25 02/08/25 15:52 Level of Risk Moderate Risk 02/08/25 15:52 Problems (Last Reviewed 11/15/24 @ 17:33 by Lisa Roberts MD) Hospice care patient (Acute) Hypoxia (Acute) Supplemental oxygen dependent (Acute) End stage COPD (Acute) v v v v v v v v v Sending and/or Receiving Nurses: Please use comment section below to note any information pertinent to the patient hand-off not included above. Information / Comments: Pt was direct admit on 02/08 this nurse admitted. Report received from: N/A
[2025-02-10 08:22] VITALS: BP 110/68; PULSE 73; O2SAT 96
[2025-02-10] MEDS: predniSONE 20 MG TAB PO (08:26)
[2025-02-10] MEDS: Isosorbide Mononitrate 30 MG TABCR 120 MG PO (08:27)
[2025-02-10] MEDS: Pantoprazole 40 MG TABCR PO (08:27)
[2025-02-10 08:32] VITALS: O2SAT 96
--- NOTE | 2025-02-10 09:32 | PDOC.CMPRO ---
Date of service: 02/10/25 Time of Service: 09:32 Care Management Progress Note Discharge Potential Discharge Needs: Other (resume hospice) Anticipated Barriers to Discharge: None Identified Patient/Family Education Needs: Review discharge instructions, discuss Ask Me Three Transportation: EMS Plan: Debra will return home with a resumption of her hospice services when medically ready for discharge. She will follow up with her hospice team and plan of care and transport via EMS. CM will follow. Social Determinants of Health Screening Social Determinants of health last assessed in clinic: 02/09/25 Will the Patient Participate in the Screening?: Yes Do you worry about having a steady place to live?: no Problems where you live: no known problems In the past 12 months, have you had to go without electric, gas, oil or water in your home?: no Has lack of transportation kept you from medical appointments or from doing things needed for daily living?: yes Has anyone in your life made you feel unsafe or unsupported?: no How hard is it for you to pay for the very basics like food, housing, medical care, and heating? Would you say it is:: Somewhat hard Do you want help finding or keeping work or a job?: I do not need or want help If for any reason you need help with day-to-day activities such as bathing, preparing meals, shopping, managing finances, etc., do you get the help you need?: I could use a little more help How often do you feel lonely or isolated from those around you?: Often Do you speak a language other than Yoruba at home?: No Does the patient want assistance with any of the above?: No Health Related Social Needs Health related social needs: transportation insecurity (Z59.82), problems related to housing/economic circumstances (Z59.89), problems with daily activities (Z73.9) and feeling lonely/isolated (Z60.8) Health related social needs details: Pt states she would like more assistance.
--- NOTE | 2025-02-10 11:30 | W.NUTRFU ---
Date of service: 02/10/25 Time of Service: 11:30 Nutrition Note NOTE: Pt chart reviewed. Latasha on comfort measures. Kitchen will support any food choices pt desires with order of regular diet with soft and bs consistencies. d/c anticipated later today. Will continue to support with any food needs until discharge. Time Spent in Nutritional Counseling and Treatment: 0
--- NOTE | 2025-02-10 12:43 | DSE_ITS ---
Date of service: 02/10/25 Time of Service: 12:44 DS: Diagnosis Discharge Diagnosis (1) End stage COPD: Status: Acute Asessment and Plan: hospice admitting diagnosis continue home CPAP and sxs management meds morphine 15mL in bottle from home meds (2) Supplemental oxygen dependent: Status: Acute (3) Hypoxia: Status: Acute (4) Hospice care patient: Status: Acute Asessment and Plan: Latasha will return home with hospice services BRONWYN Carvalho and Implant Polisher JOSY Jean present for facilitating discharge w/resumption of hospice CADD pump Discharge Plan Disposition Patient Disposition: Hospice Home Condition: Poor Discharge Details Reason For Visit: Symptom Management Admit Date/Time: 02/08/25 11:53 Admit Provider: Lisa Roberts Attending Provider: Lisa Roberts Primary Care Provider: Kay Will Hospital Course Hospital Course: Latasha is a 50 y/o F hospice patient admitted on 02/08/25 for symptom management for pain and dyspnea w/hypoxia Pain: hydromorphone CADD pump is set at 10mg/hr basal rate with a 5mg bolus q15m; she required less bolus dosing compared to 02/09, receiving 5 boluses overnight 02/09-6 and so far today 2 bolus doses since 8am; she is continuing to experience significant pain and discomfort, she would like to have some adjustments to medications however would like to prioritize returning home first Dyspnea: she has been wearing CPAP machine nearly real time trader, taking off intermittently at her discretion; she has morphine concentation for home use Fatigue: continues w/sig fatigue, mental and physical; Anxiety: lorazepam 1x today, has enough at home Nausea/PO intake: limited breakfast this morning, decreased appetite w/nausea; reports still getting good relief w/Zofran, requesting refill Latasha's preference is to return to home as quickly as possible to enjoy her time w/her cats, this nice day and spend time w/friends and family Friend Ganesh is at bedside and is prepared to transport Latasha home, spend the night this evening and be her caregiver support at this time. Her daughter and friends are planning to come tomorrow to be with her. She is also hoping OENOLOGIST from hospice will provide her supports tomorrow as well. She has a WC in home, hospital bed in home; feel safe w/transportation plan via private vehicle Home Meds and New Rx's Prescriptions: No Action prochlorperazine maleate [Compazine] 10 mg tablet 10 mg PO Q8H PRN prednisone 20 mg tablet 20 mg PO DAILY albuterol sulfate 90 mcg/actuation aerosol powdr breath activated 2 inh inhalation Q6H PRN pantoprazole 40 mg tablet,delayed release (DR/EC) 40 mg PO DAILY promethazine 25 mg tablet 25 mg PO BID PRN hydroxyzine HCl 10 mg tablet 10 mg PO TID PRN levothyroxine 100 mcg capsule 200 mcg PO DAILY ipratropium-albuterol 0.5 mg-3 mg(2.5 mg base)/3 mL solution for nebulization 3 ml inhalation QID PRN triamcinolone acetonide 0.1 % cream 1 applic topical DAILY PRN hyoscyamine sulfate 0.125 mg tablet 0.125 - 0.25 mg PO Q4H PRN PRN (Reason: dyspepsia) Qty: 24 0RF Rx Instructions: hospice patient nitroglycerin 0.3 mg tablet, sublingual 0.3 mg sublingual Q5M PRN (Reason: chest pain) Qty: 10 5RF Rx Instructions: do not exceed 3 doses per episode hospice patient furosemide [Lasix] 20 mg tablet 20 mg PO DAILY PRN (Reason: edema) Qty: 20 0RF Rx Instructions: hospice hydromorphone (PF) 10 mg/mL solution 7.5 mg subcut Q1H MDD 400 mg Qty: 100 0RF Rx Instructions: Hospice CADD pump Basal: 7.5 mg/hr Bolus: 4 mg q15m PRN TO BE PICKED-UP 02/06/25 (afternoon) morphine concentrate 100 mg/5 mL (20 mg/mL) solution 5 - 20 mg PO Q1H PRN MDD 24 mL PRN (Reason: pain) Qty: 30 0RF Rx Instructions: hospice lorazepam [Lorazepam Intensol] 2 mg/mL concentrate See Rx Instructions PO Q4H PRN (Reason: anxiety) Qty: 30 0RF Rx Instructions: 0.5 mg - 1 mg orally every 4 hours PRN; ondansetron 4 mg tablet,disintegrating 4 mg PO Q8H PRN (Reason: nausea and vomiting) Qty: 10 0RF Rx Instructions: hospice patient isosorbide mononitrate 120 mg tablet extended release 24 hr 120 mg PO DAILY Qty: 30 0RF Discharge Instructions Stand Alone Forms: Nursing Discharge Form Referrals: Kay Will [Primary Care Provider, Medicine] Referral Note: Please call your PCP office to set up a follow up appointment. Activity:: Activity as Tolerated Equipment/Supplies:: No Equipment Needed Diet:: As Tolerated Discharge Orders Discharge Orders: Discharge Order (Routine); Ordered 02/10/25 Ordered By: Jacqueline Begum DS: Summary Time Spent with Patient providing and/or coordinating discharge services: Less than 30 minutes Status at Discharge Functional status at discharge: wheelchair bound Overall status at discharge: other (patient requesting discharge home) Mental Status: mental status grossly normal Speech and Movement: speech and movement normal (dyspnea w/prolonged speech) Mood: congruent mood and anxious mood Affect: normal affect and sad Quality:SDOH Health Related Social Needs: Health related social needs transpo insecurity house/e con circumstance daily activities lonely/isolated Health related social needs details Pt states she woul d like more assistance. Health related social needs details: Pt states she would like more assistance. Exam Narrative Exam Narrative: General: frail ill appearing 50 y/o W, sitting in hospital bed, tripod position; AAO x3; friend Ganesh at bedside HEENT: hearing grossly WNL, normocephalic, atraumatic Resp: shallow, labored, irregular rate, on RA during visit, CPAP on lap, tripoding; dyspnea w/3 words or more; BS diminished worse at bases; w/rales and wheeze throughout Card: tachycardic, regular rhythm, no murmur Psych: sad and pleasant, cooperative, MS WNL, thought process normal; insight/judgment fair to good Psych Mental Status: mental status grossly normal Speech and Movement: speech and movement normal (dyspnea w/prolonged speech) Mood: congruent mood and anxious mood Affect: normal affect and sad DS: Data Vitals/I&O Vitals and I&O: Vital Signs Temperature 97.9 F 02/08/25 19:18 Temperature Source Temporal Artery Scan 02/08/25 19:18 Pulse 73 02/10/25 08:22 Pulse Rhythm Regular 02/08/25 15:52 Respiratory Rate 20 02/10/25 01:27 Respiratory Effort Short of Breath 02/08/25 15:52 Respiratory Depth Normal 02/08/25 15:52 Respiratory Pattern Normal 02/08/25 15:52 Blood Pressure 110/68 02/10/25 08:22 Blood Pressure Mean 82 02/10/25 08:22 Pulse Oximetry 96 02/10/25 08:32 Oxygen Delivery Method Bi-pap 02/10/25 08:22 Oxygen Flow Rate 3 02/10/25 08:32 Pain Level 10 02/10/25 10:40 Comment Pt reports she is using non-invasive ventilator. 02/10/25 08:22 Intake & Output 02/09/25 02/10/25 02/10/25 23:59 11:59 23:59 Intake Total 414.5 / 674.4 15.100 / 15.100 Output Total 200 / 200 300 / 300 Balance 214.5 / 474.4 -284.900 / -284.900 Intake: IV 14.5 / 24.4 15.100 / 15.100 Oral 400 / 650 Output: Urine 200 / 200 300 / 300 Other: Urine Color Yellow Yellow Urine Appearance Clear Clear Urine Odor Normal Stool Size Large Stool Characteristics Soft PFSH All Active Problems Hospice care patient (Acute) Hypoxia (Acute) Advanced care planning/counseling discussion (Acute) Supplemental oxygen dependent (Acute) Osteonecrosis (Acute) End stage COPD (Acute) Medical History Muscle cramps Respiratory disorder with ventilator dependence BiPAP dependent Steroid dependence Common variable immunodeficiency Chronic pain From osteonecrosis and chronic low back pain COPD, severe Anxiety Hematuria Hidradenitis suppurativa Tracheobronchomalacia Cannabis dependence Near syncope Palpitations Tachycardia Bradycardia Anemia Steroid-induced diabetes Primary immune deficiency disorder Surgical History History of bronchoscopy Hx of shoulder surgery History of partial hysterectomy Hx of cholecystectomy Hx of umbilical hernia repair Hx of skin graft Hx of knee surgery History of hip surgery Hx of section Social History Smoking/Tobacco Use Status: Former Tobacco Use Smoking risk assessment performed?: Yes Alcohol Intake: former Details: Pt is on hospice and has CADD pump. Housing: apartment Do you feel safe at home: Yes Do you feel safe in your relationship?: Yes Time Spent with Patient Time Spent with Patient: <45 minutes Time was spent: preparing to see the patient(eg.review tests), obtaining and/or reviewing separately otained hiistory, ordering medications,tests, procedures, referring, communicating with other health home health care physician, counseling the patient and care coordination
--- NOTE | 2025-02-10 18:09 | PDOC.CMDIS ---
Date of service: 02/10/25 Time of Service: 18:09 LACE Index Scoring Tool Questions: Length of Stay (in days): 2 Was the patient admitted via the E.D.?: Yes Comorbidities: Chronic Pulmonary Disease E.D. Visits: 0 Answers: Total Score: 7 Risk of Readmission: Low Risk Care Management Discharge Plan Reason for Hospitalization: hospice symptom management Discharge Plan: Latasha returned home today with a resumption of hospice services through [facility] & hospice. She was transported via private vehicle with a friend. Her friends and family provide 24/ care for her at home. Debra's wishes are to pass away at home. She was happy to be returning home. Patient/Family Education Needs: Review discharge instructions and expectations for hospice support. Services Needed at Discharge: Home Health Care Services (resumption of hospice support at home) SDOH Health Related Social Needs: Health related social needs transpo insecurity house/econ circumstance daily activities lonely/isolated Health related social needs details Pt states she would like more assistance. Health related social needs details: Pt states she would like more assistance.
== END 2025-02-10 15:05 | disposition hospice, inpatient (51) | DRG 189 ==
PROVIDERS: Admitting Provider Family Medicine; PCP Family Medicine; Responsible Provider Family Medicine; Visit Provider Family Medicine
DX: J96.91 Respiratory failure, unspecified with hypoxia (principal); D83.9 Common variable immunodeficiency, unspecified; M87.9 Osteonecrosis, unspecified; Z99.81 Dependence on supplemental oxygen; Z51.5 Encounter for palliative care; G89.29 Other chronic pain; J44.9 Chronic obstructive pulmonary disease, unspecified; Z79.52 Long term (current) use of systemic steroids; M54.9 Dorsalgia, unspecified; R53.83 Other fatigue; F41.9 Anxiety disorder, unspecified; L73.2 Hidradenitis suppurativa; F12.20 Cannabis dependence, uncomplicated; D64.9 Anemia, unspecified; J98.09 Other diseases of bronchus, not elsewhere classified; E09.9 Drug or chemical induced diabetes mellitus without complications; T38.0X5A Adverse effect of glucocorticoids and synthetic analogues, initial encounter; Z79.899 Other long term (current) drug therapy; Z59.82 Transportation insecurity; R45.89 Other symptoms and signs involving emotional state; Z59.9 Problem related to housing and economic circumstances, unspecified
CPT/HCPCS: 00123; 94640; 94760; J1171; J3490; J7512; J7613

== ENCOUNTER 2025-02-14 11:28 | Outpatient (RCR) | payer OTHER, SELFPAY ==
--- NOTE | 2025-02-14 13:17 | DI.RAD_ITS ---
Exam(s) XR PORTABLE CHEST AP EXAM: XR PORTABLE CHEST AP CLINICAL HISTORY: picc line placement. TECHNIQUE: 2D digital imaging was performed. COMPARISON: No exams were available for comparison FINDINGS: Single AP portable view. Right-sided PICC line is in good position with distal tip in the SVC. Cardiomegaly noted. The mediastinum is not widened. There is platelike atelectasis in the right lung base. There is also a small noncalcified nodular density measuring 6 mm in the right lung base. The left lung is clear. No pleural effusions. Right shoulder prosthesis noted. IMPRESSION: There is a 6 mm nodule in the right lung base and there is platelike atelectasis in the right lung base.No obvious left lung findings. Cardiomegaly. No pulmonary edema Right side PICC line is in good position with distal tip in SVC. DATA REPOSITORY: RADIATION DOSE DELIVERED:
== END 2025-03-07 23:59 | disposition home or self-care (01) ==
LOC: INF 11:28
PROVIDERS: PCP Family Medicine; Visit Provider Family Medicine
DX: Z45.2 Encounter for adjustment and management of vascular access device (principal)
CPT/HCPCS: 36573; 71045